=== PATIENT | female | born 1980 | race Asian ===

== ENCOUNTER → 2023-03-10 11:50 | Outpatient (CLI) | payer OTHER, SELFPAY ==
--- NOTE | 2023-03-10 | DI.MG.S_ITS ---
BILATERAL DIGITAL SCREENING MAMMOGRAM 3D/2D WITH CAD: 03/10/2023 CLINICAL: Baseline exam. Routine screening. No prior exams were available for comparison. Both breasts are heterogeneously dense, which may obscure small masses (category c / 51-75% glandular tissue). Current study was also evaluated with a Computer Aided Detection (CAD) system. There is an asymmetry in the right breast posterior depth lateral region seen on the craniocaudal view only. No other significant masses, calcifications, or other findings are seen in either breast. IMPRESSION: INCOMPLETE: NEEDS ADDITIONAL IMAGING EVALUATION The asymmetry in the right breast is indeterminate. Additional views with possible ultrasound are recommended. Based on the Tyrer Cuzick model (a risk assessment model) the patient's lifetime risk is 13.0% and her 10 year risk is 1.8%. According to the ACR, ACS, and NCCN guidelines, an annual breast MRI exam along with mammogram is recommended if the patient's lifetime risk is 20% or greater. This exam was interpreted at Station ID: [id number]. NOTE: For mammograms, a report in lay terms will be sent to the patient. Approximately 15% of breast malignancies will not be visualized mammographically. In the management of a palpable breast mass, a negative mammogram must not discourage biopsy of a clinically suspicious lesion. Electronically Signed By: Octavio Wolfe M.D. lc/:03/10/2023 14:06:41 letter sent: Additional Imaging Needed ACR BI-RADS Category 0: Incomplete 3340F
== END ==
PROVIDERS: PCP Registered Nurse; Referring Provider Registered Nurse; Visit Provider Registered Nurse
DX: Z12.31 Encounter for screening mammogram for malignant neoplasm of breast (principal)
CPT/HCPCS: 77063; 77067

== ENCOUNTER → 2023-05-16 13:15 | Outpatient (CLI) | payer OTHER, SELFPAY ==
--- NOTE | 2023-05-16 | DI.US.S_ITS ---
PROCEDURE: US PELVIC COMPLETE INDICATIONS: IRREGULAR MENSES TECHNIQUE: Real-time scanning was performed of the pelvic organs, with image documentation. Additional endovaginal scanning was necessary due to incomplete visualization of the adnexal and endometrial structures by transabdominal scanning. COMPARISON: None. FINDINGS: Uterus: Uterus is retroverted and enlarged in size at 11.3 x 6.5 x 5.6 cm. The myometrium is homogeneous. No discrete uterine fibroids. The endometrium measures 8 mm combined thickness. No gross endometrial mass or fluid is seen. Ovaries: The right ovary measures 3.4 x 2.2 x 1.7 cm, with a calculated ovarian volume of 6.7 cc. The left ovary measures 3.8 x 1.7 x 1.5 cm, with a calculated ovarian volume of 5.1 cc. A 1.2 x 1.4 x 0.9 cm right para ovarian cyst is seen. Dominant follicle is noted in right ovary measures 1.7 x 1.4 x 1.1 cm in size containing internal daughter cyst. Less than 12 follicles can be seen in each ovary. No adnexal masses are seen. Other: No pathologic free abdominal or pelvic fluid. IMPRESSION: 1. Enlarged uterus. No discrete uterine fibroids. No endometrial mass or fluid. 2. Right para ovarian cyst and dominant ovarian follicle as described above. No solid appearing ovarian lesion. No adnexal mass. Normal appearing left ovary. We strive to produce accurate, complete, and clear reports of imaging services. To assist us in improving patient care, this report was composed using standard report templates and voice recognition software. Therefore, it may contain abnormal punctuation, insertions and/or omissions. Occasional wrong-word or sound-alike substitutions may occur. Though we review the report and make efforts to correct it, we do recommend that the report be read carefully in proper context to recognize any text inaccuracies. Dictated by: Darwin Yuan M.D. on 05/16/2023 at 16:34 Approved by: Darwin Yuan M.D. on 05/16/2023 at 16:36
--- NOTE | 2023-05-16 | DI.MG.S_ITS ---
UNILATERAL RIGHT DIGITAL DIAGNOSTIC MAMMOGRAM 3D/2D WITH ADDITIONAL VIEWS: 05/16/2023 CLINICAL: Additional evaluation requested from prior study. Comparison is made to exam dated: 03/10/2023 mammogram - [facility]. The right breast is heterogeneously dense, which may obscure small masses (category c / 51-75% glandular tissue). The asymmetry in the right breast posterior depth lateral region seen on the craniocaudal view only is not seen in additional views. No other significant masses or calcifications are seen in the breast. IMPRESSION: BENIGN The right breast asymmetry seen on the screening mammogram likely respresents superimposed fibroglandular tissue and is benign. There is no mammographic evidence of malignancy. Return to annual mammogram screening schedule is recommended. Based on the Tyrer Cuzick model (a risk assessment model) the patient's lifetime risk is 13.4% and her 10 year risk is 1.8%. According to the ACR, ACS, and NCCN guidelines, an annual breast MRI exam along with mammogram is recommended if the patient's lifetime risk is 20% or greater. This exam was interpreted at Station ID: [id number]. NOTE: For mammograms, a report in lay terms will be sent to the patient. Approximately 15% of breast malignancies will not be visualized mammographically. In the management of a palpable breast mass, a negative mammogram must not discourage biopsy of a clinically suspicious lesion. Electronically Signed By: Lizeth faye/:05/16/2023 14:03:07 letter sent: Normal Exam ACR BI-RADS Category 2: Benign Finding(s) 3342F
== END ==
LOC: MAMMO 13:16
PROVIDERS: PCP Registered Nurse; Referring Provider Registered Nurse; Visit Provider Registered Nurse
DX: R92.8 Other abnormal and inconclusive findings on diagnostic imaging of breast (principal); N64.89 Other specified disorders of breast; R92.331 Mammographic heterogeneous density, right breast; N92.6 Irregular menstruation, unspecified; N85.2 Hypertrophy of uterus; N83.201 Unspecified ovarian cyst, right side
CPT/HCPCS: 76830; 76856; 77065; G0279

== ENCOUNTER → 2023-05-31 07:12 | Outpatient (CLI) | payer OTHER, SELFPAY ==
--- NOTE | 2023-05-31 | DI.US.S_ITS ---
PROCEDURE: US ABDOMEN LIMITED INDICATIONS: Hereditary elliptocytosis TECHNIQUE: Real-time scanning was performed of the abdominal and retroperitoneal organs, with image documentation. COMPARISON: None. FINDINGS: Liver: Liver is normal in size and homogeneous in echotexture. Portal vein is patent measuring 1.6 cm, demonstrating hepatopetal flow. Gallbladder: There are several gallbladder polyps, measuring up to 5.5 mm arising from the anterior wall. No gallstones. Gallbladder wall thickness is normal. No pericholecystic fluid collection or sonographic Forbes sign. Biliary ducts: Intrahepatic bile ducts are non-dilated. Extrahepatic bile duct caliber measures 4.7 mm. Normal is 6-7 mm or less in diameter, or 10 mm or less post-cholecystectomy. Pancreas: Visualized portions of the pancreas are sonographically normal. Miscellaneous: No free abdominal fluid. Spleen is normal in size. IMPRESSION: 1. Multiple gallbladder polyps measuring up to 5.5 mm. Consider a follow-up ultrasound in 6 months, and annually thereafter for 5 years. Dictated by: Bharat Beckett M.D. on 05/31/2023 at 10:09 Approved by: Bharat Beckett M.D. on 05/31/2023 at 10:12
== END ==
LOC: US 07:13
PROVIDERS: PCP Registered Nurse; Referring Provider Registered Nurse; Visit Provider Registered Nurse
DX: D58.1 Hereditary elliptocytosis (principal); K82.4 Cholesterolosis of gallbladder
CPT/HCPCS: 76705

== ENCOUNTER → 2024-06-13 07:32 | Outpatient (CLI) | payer OTHER, SELFPAY ==
--- NOTE | 2024-06-13 07:33 | DI.US.S_ITS ---
PROCEDURE: US ABDOMEN LIMITED INDICATIONS: GALLBLADDER POLYP TECHNIQUE: Real-time scanning was performed of the abdominal and retroperitoneal organs, with image documentation. COMPARISON: [facility], [place], US ABDOMEN LIMITED, 05/31/2023, 7:23. FINDINGS: Liver: Liver is normal in size and homogeneous in echotexture. Gallbladder: No stones demonstrated. Gallbladder polyps. Largest polyp measuring 5 mm is unchanged. No wall thickening. No pericholecystic edema. Negative sonographic Forbes's sign. Biliary ducts: Intrahepatic bile ducts are non-dilated. Extrahepatic bile duct caliber measures 4 mm. Normal is 6-7 mm or less in diameter, or 10 mm or less post-cholecystectomy. Pancreas: Visualized portions of the pancreas are sonographically normal. IMPRESSION: 1. Small gallbladder polyps. Largest measuring 5 mm is stable. -No further imaging is required given its small size less than 6 mm. 2. No acute cholecystitis. No definite gallstones. Dictated by: Beny Monae M.D. on 06/13/2024 at 17:22 Approved by: Beny Monae M.D. on 06/13/2024 at 17:26
--- NOTE | 2024-06-13 07:33 | DI.MG.S_ITS ---
MM screening mammo BI: 06/13/2024. BI-RADS: 1 CLINICAL: 44-year old female for bilateral screening mammogram. Tyrer-Cuzick lifetime risk of 10.6%. No personal or first-degree family history of breast cancer. PRIOR EXAMS 05/16/2023, 03/10/2023. MAMMOGRAPHY TECHNIQUE: 2D and 3D (tomosynthesis) digital mammographic views obtained, with additional images as needed for full coverage. Current study was also evaluated with a Computer Aided Detection (CAD) system. DENSITY C. The breasts are heterogeneously dense, which may obscure small masses. MAMMOGRAPHY FINDINGS Bilateral: No suspicious mass, asymmetry, microcalcification, or other abnormality seen. IMPRESSION: * No evidence of malignancy. RECOMMENDATIONS Bilateral * Annual screening mammography. OVERALL ASSESSMENT CATEGORY BI-RADS-1: Negative. The [employer] recommends annual screening mammography beginning at age 40 for women with average risk of breast cancer. ELECTRONICALLY SIGNED: Gabe Santiago M.D. on 06/15/2024 at 09:01:39 AM PT Interpreting Station ID: [id number]
== END ==
PROVIDERS: PCP Registered Nurse; Referring Provider Registered Nurse; Visit Provider Registered Nurse
DX: Z12.31 Encounter for screening mammogram for malignant neoplasm of breast (principal); R92.333 Mammographic heterogeneous density, bilateral breasts; K82.4 Cholesterolosis of gallbladder
CPT/HCPCS: 76705; 77063; 77067

== ENCOUNTER → 2024-08-21 07:08 | Outpatient (CLI) | payer OTHER, SELFPAY ==
--- NOTE | 2024-08-21 07:08 | DI.US.S_ITS ---
PROCEDURE: US PELVIC COMPLETE INDICATIONS: irregular menses TECHNIQUE: Real-time scanning was performed of the pelvic organs, with image documentation. Additional endovaginal scanning was necessary due to incomplete visualization of the adnexal and endometrial structures by transabdominal scanning. COMPARISON: [facility], , US PELVIC COMPLETE, 05/16/2023, 14:11. FINDINGS: Uterus: Uterus is retroverted and normal in size at 10.8 x 7.0 x 5.6 cm. The myometrium is heterogeneous. The endometrium measures 14 mm combined thickness. IUD not identified. Ovaries: The right ovary measures 4.2 x 2.6 x 3.0 cm, with a calculated ovarian volume of 17 cc. The left ovary is not visualized. Suspected simple appearing left ovarian cyst measuring 3.1 x 1.9 x 2.2 centimeter. Other: No pathologic free abdominal or pelvic fluid. IMPRESSION: IUD not visualized. Recommend pelvic x-ray to exclude peritoneal location. Left ovary not visualized. Right ovary contains a simple appearing cyst measuring 3.1 centimeter. We strive to produce accurate, complete, and clear reports of imaging services. To assist us in improving patient care, this report was composed using standard report templates and voice recognition software. Therefore, it may contain abnormal punctuation, insertions and/or omissions. Occasional wrong-word or sound-alike substitutions may occur. Though we review the report and make efforts to correct it, we do recommend that the report be read carefully in proper context to recognize any text inaccuracies. Dictated by: Brock Benites M.D. on 08/21/2024 at 9:32 Approved by: Brock Benites M.D. on 08/21/2024 at 9:34
== END ==
LOC: US 07:08
PROVIDERS: PCP Registered Nurse; Referring Provider Registered Nurse; Visit Provider Registered Nurse
DX: N83.201 Unspecified ovarian cyst, right side (principal); N92.6 Irregular menstruation, unspecified; Z97.5 Presence of (intrauterine) contraceptive device
CPT/HCPCS: 76830; 76856

== ENCOUNTER → 2024-08-23 14:23 | Outpatient (CLI) | payer OTHER, SELFPAY ==
--- NOTE | 2024-08-23 14:26 | DI.RAD.S_ITS ---
PROCEDURE: XR ABDOMEN 1V INDICATIONS: Displacement of intrauterine contraceptive device, initial e TECHNIQUE: One view of the abdomen acquired. COMPARISON: None. FINDINGS: Surgical changes and devices: None. Bowel: Bowel gas pattern is normal. Soft tissues: No suspicious abdominal calcifications. Visualized solid organ contours appear normal in size. Bones: No suspicious bony lesions. IMPRESSION: An IUD is not identified over the visualized abdomen or pelvis. The upper quarter of the abdomen/pelvis is not included on this study. Dictated by: Jose Waters M.D. on 08/24/2024 at 13:09 Approved by: Jose Waters M.D. on 08/24/2024 at 13:10
== END ==
PROVIDERS: PCP Registered Nurse; Referring Provider Registered Nurse; Visit Provider Registered Nurse
DX: T83.32XA Displacement of intrauterine contraceptive device, initial encounter (principal)
CPT/HCPCS: 72170

== ENCOUNTER → 2024-09-04 12:20 | Outpatient (CLI) | payer OTHER, SELFPAY ==
--- NOTE | 2024-09-04 12:24 | DI.RAD.S_ITS ---
PROCEDURE: XR ABDOMEN 1V INDICATIONS: Displacement of intrauterine contraceptive device, initial e TECHNIQUE: One view of the abdomen acquired. COMPARISON: [facility], CR, XR ABDOMEN 1V, 08/23/2024, 14:22. FINDINGS: Surgical changes and devices: No radiopaque foreign body. IUD is absent. Bowel: Bowel gas pattern is normal. Soft tissues: No suspicious abdominal calcifications. Visualized solid organ contours appear normal in size. Bones: No suspicious bony lesions. IMPRESSION: IUD is absent. Dictated by: Beny Monae M.D. on 09/04/2024 at 21:36 Approved by: Beny Monae M.D. on 09/04/2024 at 21:36
== END ==
PROVIDERS: PCP Registered Nurse; Referring Provider Registered Nurse; Visit Provider Registered Nurse
DX: T83.32XA Displacement of intrauterine contraceptive device, initial encounter (principal)
CPT/HCPCS: 74018